=== PATIENT | male | born 1995 | race African-American/Black ===

== ENCOUNTER 2020-08-11 21:20 | Emergency (ER) | payer OTHER, SELFPAY ==
[~2020-08-11] VITALS: Ht 193 cm; Wt 73.8 kg
[2020-08-11 21:20] VITALS: BP 136/88
== END 2020-08-11 22:32 | disposition home or self-care (01) ==
LOC: M ED 21:20
DX: Z20.828 Contact with and (suspected) exposure to other viral communicable diseases (principal)
CPT/HCPCS: 99282; U0003

== ENCOUNTER 2022-03-24 07:15 | Emergency (ER) | payer OTHER, SELFPAY ==
[~2022-03-24] VITALS: Ht 193 cm; Wt 72.8 kg
[2022-03-24] MEDS ORDERED: IBUP-1022 PO (07:22)
[2022-03-24] MEDS ORDERED: AMOX250C3 PO (07:23)
[2022-03-24] MEDS ORDERED: ULTR50TA8 PO (07:57)
[2022-03-24 08:07] VITALS: BP 136/91
== END 2022-03-24 08:17 | disposition home or self-care (01) ==
LOC: M ED 07:15 → EDBD 07:15 → M ED 08:17
DX: K08.89 Other specified disorders of teeth and supporting structures (principal)